=== PATIENT | male | born 1950 | race Caucasian/White ===

== ENCOUNTER 2020-10-28 11:05 | Emergency (ER) | payer MEDICARE, OTHER ==
[~2020-10-28] VITALS: Ht 172.7 cm; Wt 106.6 kg
[2020-10-28 11:45] VITALS: BP 126/72
--- NOTE | 2020-10-28 12:02 | NUR ---
RADIOLOGY IN ROOM FOR CHEST XRAY.
--- NOTE | 2020-10-30 10:22 | NUR ---
RECEIVED CALL FROM LAB. PT IS COVID POSITIVE.
== END 2020-10-28 13:59 | disposition home or self-care (01) ==
LOC: ER 11:11
DX: U07.1 COVID-19 (principal); J02.9 Acute pharyngitis, unspecified; R91.8 Other nonspecific abnormal finding of lung field; Z95.5 Presence of coronary angioplasty implant and graft; I10 Essential (primary) hypertension; E11.9 Type 2 diabetes mellitus without complications
CPT/HCPCS: 71045-TC; 86403-TC; 87070-TC; C9803; U0003